=== PATIENT | female | born 1995 | race Hispanic/Latino ===

== ENCOUNTER → 2019-03-06 | Outpatient (CLI) | payer OTHER ==
--- NOTE | 2019-03-06 13:13 | Diagnostic Imaging Report ---
Exam: Pelvic ultrasound. History: Dyspareunia Comparison: None Findings: Endovaginal sonographic evaluation of the pelvis. The uterus is anteverted in position, measuring 8.9 x 4.3 x 5.7cm. No uterine mass. Endometrial stripe thickness is 7 mm. The right ovary measures 3.8 x 2.1 x 2.9 cm and appears unremarkable. The left ovary measures 2.6 x 1.8 x 2.7 cm and contains a 1.4 cm hypoechoic structure, likely a physiologic follicle. No pelvic free fluid. Impression: Unremarkable pelvic ultrasound. Signed by: Guillermina Lewis MD on 03/06/2019 1:10 PM
== END ==
LOC: US 11:35
PROVIDERS: ATTEND Internal Medicine
DX: N94.10 Unspecified dyspareunia (principal); F52.1 Sexual aversion disorder
CPT/HCPCS: 76830